=== PATIENT | female | born 1980 | race African-American/Black ===

== ENCOUNTER 2018-07-28 14:47 | Emergency (ER) | payer SELFPAY ==
[~2018-07-28] VITALS: Ht 165.1 cm; Wt 86.0 kg
[2018-07-28 14:49] VITALS: BP 180/100
== END 2018-07-28 18:18 | disposition left against medical advice (07) ==
LOC: ER 14:47
DX: R20.0 Anesthesia of skin (principal); Z53.21 Procedure and treatment not carried out due to patient leaving prior to being seen by health care provider